=== PATIENT | male | born 1960 | race American Indian/Alaskan Native ===

== ENCOUNTER 2021-10-05 19:40 | Emergency (ER) | payer OTHER ==
[2021-10-05] MEDS ORDERED: HYDROmorphone 1 MG/ML Syringe IM ONE (20:31)
== END 2021-10-05 21:00 | disposition home or self-care (01) ==
LOC: JD.ED 19:40
DX: G89.29 Other chronic pain (principal); M54.2 Cervicalgia; E11.9 Type 2 diabetes mellitus without complications; F17.210 Nicotine dependence, cigarettes, uncomplicated; Z88.8 Allergy status to other drugs, medicaments and biological substances; Z88.5 Allergy status to narcotic agent
CPT/HCPCS: 96372; 99283; J1170

== ENCOUNTER 2022-04-29 09:58 | Day surgery (SDC) | payer OTHER ==
[~2022-04-29 09:58] MED LIST: Lactated Ringers 1,000 ML IV SCH; Lidocaine 1%/Sod Bicarbonate in NS 8.4% 1 ML Syringe IDERM PRN; Sodium Chloride 0.9% 10 ML Syringe FLUSH PRN; Sodium Chloride 0.9% 10 ML Syringe FLUSH SCH
[2022-04-29] MEDS ORDERED: Ondansetron 4 MG/2 ML SDV IVPUSH PRN (10:20)
[2022-04-29] MEDS ORDERED: fentaNYL 100 MCG/2 ML SDV IVPUSH PRN (10:20)
[2022-04-29] MEDS ORDERED: HYDROmorphone 0.5 MG/0.5 ML Syringe IVPUSH PRN (10:20)
[2022-04-29] MEDS ORDERED: Lidocaine 1% 2 ML ONE (10:30)
[2022-04-29] MEDS ORDERED: Propofol 200 MG/20 ML SDV ONE ×2 (10:30→11:10)
[2022-04-29] MEDS ORDERED: fentaNYL 100 MCG/2 ML SDV ONE (10:31)
[2022-04-29] MEDS ORDERED: Midazolam 1 MG/ML 2 ML SDV ONE (10:31)
[2022-04-29] MEDS ORDERED: Phenylephrine HCl In 0.9% NaCl 1 MG/10 ML Vial ONE (10:58)
[2022-04-29] MEDS ORDERED: ePHEDrine 50 MG/ML SDV ONE (11:45)
== END 2022-04-29 12:53 | disposition home or self-care (01) ==
LOC: JD.SDS 09:58
PROVIDERS: ATTEND Surgery
DX: D12.2 Benign neoplasm of ascending colon (principal); D12.4 Benign neoplasm of descending colon; D12.5 Benign neoplasm of sigmoid colon; D12.3 Benign neoplasm of transverse colon; K31.89 Other diseases of stomach and duodenum; K21.9 Gastro-esophageal reflux disease without esophagitis; K64.8 Other hemorrhoids; K62.1 Rectal polyp; E11.9 Type 2 diabetes mellitus without complications; I10 Essential (primary) hypertension; F32.9 Major depressive disorder, single episode, unspecified; E78.5 Hyperlipidemia, unspecified; E55.9 Vitamin D deficiency, unspecified; M10.9 Gout, unspecified; M19.90 Unspecified osteoarthritis, unspecified site; G47.00 Insomnia, unspecified; F17.210 Nicotine dependence, cigarettes, uncomplicated; Z98.890 Other specified postprocedural states; Z79.899 Other long term (current) drug therapy; Z79.4 Long term (current) use of insulin; Z88.6 Allergy status to analgesic agent; Z98.1 Arthrodesis status
CPT/HCPCS: 43239; 45380; 45381; 45385; 82947; J2250; J2704; J3010; J7120; 00813; J3490

== ENCOUNTER 2023-07-20 16:19 | Inpatient (IN) | payer OTHER ==
[2023-07-20 17:53] LABS: BASOPHILS PERCENT AUTO 0.3 % (0.0-1.0); EOSINOPHILS ABSOLUTE AUTO 0.2 K/mm3 (0.0-0.4); EOSINOPHILS PERCENT AUTO 2.7 % (0.0-6.0); HEMATOCRIT 41.3 % (42.0-52.0); HEMOGLOBIN 13.9 gm/dl (14.0-18.0); IMMATURE GRAN ABSOLUTE AUTO 0.02 K/mm3 (0.00-0.05); IMMATURE GRAN PERCENT AUTO 0.3 % (0.0-0.4); LYMPHOCYTES ABSOLUTE AUTO 1.9 K/mm3 (1.0-4.8); LYMPHOCYTES PERCENT AUTO 25.8 % (24.0-44.0); MEAN CORPUSCULAR HEMOGLOBIN 30.3 pg (28.0-32.0); MEAN CORPUSCULAR HGB CONC 33.7 g/dl (32.0-36.0); MONOCYTES ABSOLUTE AUTO 0.4 K/mm3 (0.0-0.8); MONOCYTES PERCENT AUTO 5.9 % (0.0-8.0); NEUTROPHILS ABSOLUTE AUTO 4.7 K/mm3 (1.8-7.7); PLATELET COUNT,PLT 194 K/mm3 (150-400); RED BLOOD CELL COUNT 4.59 M/mm3 (4.52-5.90); WHITE BLOOD CELL COUNT,WBC 7.28 K/mm3 (3.9-11.3)
[2023-07-20 18:04] LABS: A/G RATIO 1.2 (1-2); ALBUMIN 3.8 g/dl (3.4-5.0); ANION GAP 12.9 (5-15); BILIRUBIN TOTAL 0.6 mg/dL (0.2-1.0); BUN/CREATININE RATIO 11.1 (14-18); CALCIUM 10.5 mg/dL (8.5-10.1); CREATININE 1.8 mg/dL (0.7-1.3); EST CRCL DRUG DOSING (CG) 49.47 mL/min; POTASSIUM,K 3.9 mEq/L (3.5-5.1); PROTEIN TOTAL,TP 7.1 g/dl (6.4-8.2)
[2023-07-20 18:10] LABS: INR 1.06; PROTHROMBIN TIME 11.3 SECONDS (9.7-12.0)
[2023-07-20] MEDS: Ondansetron 4 MG/2 ML SDV IVPUSH ONE (18:53)
[2023-07-20] MEDS: Morphine 4 MG/ML Syringe IVPUSH ONE (18:53)
[2023-07-20] MEDS ORDERED: Sodium Chloride 0.9% 100 ML IV SCH (20:00)
[2023-07-20] MEDS: Iopamidol 755 Mg/ML 100 ML Bottle IVPUSH ONE (20:00)
[2023-07-20 20:01] LABS: APPEARANCE,URINE CLEAR (Clear); BILIRUBIN,URINE NEGATIVE (Negative); COLOR,URINE YELLOW (Yellow); GLUCOSE,URINE NEGATIVE (Negative); KETONES,URINE NEGATIVE (Negative); LEUKOCYTE ESTERASE,URINE NEGATIVE (Negative); NITRITE,URINE NEGATIVE (Negative); OCCULT BLOOD,URINE NEGATIVE (Negative); PROTEIN,URINE NEGATIVE (Negative)
[2023-07-20] MEDS: Heparin Sodium/D5W 25,000 UNITS/500 ML BAG IV SCH (22:33)
[2023-07-21] MEDS: Acetaminophen 325 MG Tab PO PRN (00:01)
[2023-07-21] MEDS ORDERED: Ondansetron 4 MG/2 ML SDV IV PRN (06:33)
[2023-07-21] MEDS: Insulin Lispro 100 Unit/ML 3 ML KwikPen SUBCUT SCH (07:36)
[2023-07-21] MEDS: oxyCODONE 5 MG Tab PO PRN (07:53)
[2023-07-21] MEDS: Pantoprazole 40 MG Tab.CR PO SCH (07:54)
[2023-07-21] MEDS ORDERED: Pantoprazole 40 MG Tab.CR PO SCH (09:00)
[2023-07-21] MEDS: Tamsulosin 0.4 MG Cap.ER PO SCH (12:01)
[2023-07-21] MEDS: Famotidine 20 MG Tab PO SCH (12:01)
[2023-07-21] MEDS: Cyclobenzaprine 10 MG Tab PO SCH (14:14)
[2023-07-21] MEDS: Insulin Glargine,Human Rec. Analog 100 Units/ML 3 ML Pen SUBCUT SCH (20:53)
[2023-07-21] MEDS: Heparin Sodium 5,000 Units/ML Vial IV ONE (22:45)
[2023-07-22 03:32] LABS: HEMATOCRIT 40.9 % (42.0-52.0); HEMOGLOBIN 13.9 gm/dl (14.0-18.0); MEAN CORPUSCULAR HEMOGLOBIN 30.4 pg (28.0-32.0); MEAN CORPUSCULAR VOLUME 89.5 fl (83.0-99.0); MEAN PLATELET VOLUME 9.5 fl (9.4-12.4); PLATELET COUNT,PLT 195 K/mm3 (150-400); RED BLOOD CELL COUNT 4.57 M/mm3 (4.52-5.90); WHITE BLOOD CELL COUNT,WBC 5.49 K/mm3 (3.9-11.3)
[2023-07-22 04:02] LABS: A/G RATIO 0.9 (1-2); ALBUMIN 3.2 g/dl (3.4-5.0); BILIRUBIN TOTAL 0.3 mg/dL (0.2-1.0); BUN/CREATININE RATIO 16.3 (14-18); CALCIUM 9.7 mg/dL (8.5-10.1); CREATININE 1.6 mg/dL (0.7-1.3); EST CRCL DRUG DOSING (CG) 55.66 mL/min; PROTEIN TOTAL,TP 6.6 g/dl (6.4-8.2)
[2023-07-22 04:18] LABS: INR 0.99; PROTHROMBIN TIME 10.6 SECONDS (9.7-12.0)
[2023-07-22] MEDS: Heparin Sodium 5,000 Units/ML Vial IV ONE ×2 (04:59→20:17)
[2023-07-22] MEDS: buPROPion 150 MG Tab.ER PO SCH (07:59)
[2023-07-22] MEDS: CARISOPRODOL 250 MG PO SCH (10:06)
[2023-07-22] MEDS: Warfarin 5 MG Tab PO SCH (17:57)
[2023-07-22] MEDS: Tamsulosin 0.4 MG Cap.ER PO SCH (20:19)
[2023-07-23 02:39] LABS: HEMATOCRIT 41.6 % (42.0-52.0); HEMOGLOBIN 13.9 gm/dl (14.0-18.0); MEAN CORPUSCULAR HEMOGLOBIN 29.6 pg (28.0-32.0); MEAN CORPUSCULAR HGB CONC 33.4 g/dl (32.0-36.0); MEAN CORPUSCULAR VOLUME 88.7 fl (83.0-99.0); MEAN PLATELET VOLUME 9.3 fl (9.4-12.4); PLATELET COUNT,PLT 187 K/mm3 (150-400); RED BLOOD CELL COUNT 4.69 M/mm3 (4.52-5.90)
[2023-07-23 02:59] LABS: ALBUMIN 3.3 g/dl (3.4-5.0); ANION GAP 10.9 (5-15); BILIRUBIN TOTAL 0.4 mg/dL (0.2-1.0); BUN/CREATININE RATIO 16.5 (14-18); CALCIUM 9.6 mg/dL (8.5-10.1); CREATININE 1.7 mg/dL (0.7-1.3); EST CRCL DRUG DOSING (CG) 52.38 mL/min; INR 1.02; POTASSIUM,K 3.9 mEq/L (3.5-5.1); PROTEIN TOTAL,TP 6.7 g/dl (6.4-8.2); PROTHROMBIN TIME 10.9 SECONDS (9.7-12.0)
[2023-07-23] MEDS: Insulin Glargine,Human Rec. Analog 100 Units/ML 3 ML Pen SUBCUT SCH (11:54)
[2023-07-23] MEDS: Warfarin 3 MG Tab PO SCH (17:44)
[2023-07-24 05:43] LABS: HEMOGLOBIN 14.3 gm/dl (14.0-18.0); MEAN CORPUSCULAR HEMOGLOBIN 30.2 pg (28.0-32.0); MEAN CORPUSCULAR VOLUME 88.6 fl (83.0-99.0); MEAN PLATELET VOLUME 9.9 fl (9.4-12.4); PLATELET COUNT,PLT 206 K/mm3 (150-400); RED BLOOD CELL COUNT 4.74 M/mm3 (4.52-5.90); WHITE BLOOD CELL COUNT,WBC 6.86 K/mm3 (3.9-11.3)
[2023-07-24 05:56] LABS: ALBUMIN 3.4 g/dl (3.4-5.0); ANION GAP 15.1 (5-15); BILIRUBIN TOTAL 0.3 mg/dL (0.2-1.0); BUN/CREATININE RATIO 15.3 (14-18); CALCIUM 10.1 mg/dL (8.5-10.1); CREATININE 1.9 mg/dL (0.7-1.3); EST CRCL DRUG DOSING (CG) 46.87 mL/min; INR 1.06; POTASSIUM,K 4.1 mEq/L (3.5-5.1); PROTEIN TOTAL,TP 6.9 g/dl (6.4-8.2); PROTHROMBIN TIME 11.3 SECONDS (9.7-12.0)
[2023-07-24 06:23] LABS: PTT,PARTIAL THROMBOPLSTIN TIME 70.6 SECONDS (21.7-31.4)
[2023-07-24] MEDS: Warfarin 3 MG Tab PO SCH (17:06)
[2023-07-25 05:52] LABS: HEMATOCRIT 38.7 % (42.0-52.0); HEMOGLOBIN 13.5 gm/dl (14.0-18.0); MEAN CORPUSCULAR HGB CONC 34.9 g/dl (32.0-36.0); MEAN PLATELET VOLUME 9.8 fl (9.4-12.4); PLATELET COUNT,PLT 190 K/mm3 (150-400); RED BLOOD CELL COUNT 4.35 M/mm3 (4.52-5.90); WHITE BLOOD CELL COUNT,WBC 6.31 K/mm3 (3.9-11.3)
[2023-07-25 06:12] LABS: INR 1.36; PROTHROMBIN TIME 14.2 SECONDS (9.7-12.0)
[2023-07-25 06:27] LABS: A/G RATIO 0.9 (1-2); ALBUMIN 3.1 g/dl (3.4-5.0); ANION GAP 13.2 (5-15); BILIRUBIN TOTAL 0.2 mg/dL (0.2-1.0); BUN/CREATININE RATIO 17.4 (14-18); CALCIUM 9.7 mg/dL (8.5-10.1); CREATININE 1.9 mg/dL (0.7-1.3); EST CRCL DRUG DOSING (CG) 46.87 mL/min; POTASSIUM,K 4.2 mEq/L (3.5-5.1); PROTEIN TOTAL,TP 6.5 g/dl (6.4-8.2)
[2023-07-25] MEDS ORDERED: Pantoprazole 40 MG Tab.CR PO SCH (09:30)
[2023-07-25] MEDS: Warfarin 3 MG Tab PO SCH (17:04)
[2023-07-25] MEDS ORDERED: HYDROmorphone 1 MG/ML Syringe IVPUSH PRN (19:57)
[2023-07-25] MEDS: HYDROmorphone 0.5 MG/0.5 ML Syringe IVPUSH PRN (21:09)
[2023-07-26 06:12] LABS: INR 1.49; PROTHROMBIN TIME 15.5 SECONDS (9.7-12.0)
[2023-07-26 06:18] LABS: ALBUMIN 3.2 g/dl (3.4-5.0); ANION GAP 12.1 (5-15); BILIRUBIN TOTAL 0.2 mg/dL (0.2-1.0); CREATININE 1.7 mg/dL (0.7-1.3); EST CRCL DRUG DOSING (CG) 52.38 mL/min; POTASSIUM,K 4.1 mEq/L (3.5-5.1); PROTEIN TOTAL,TP 6.5 g/dl (6.4-8.2)
[2023-07-26] MEDS: Fenofibrate Nanocrystallized 145 MG Tab PO SCH (07:45)
[2023-07-26] MEDS ORDERED: buPROPion 150 MG Tab.ER PO SCH (09:00)
[2023-07-26] MEDS: HYDROmorphone 1 MG/ML Syringe IVPUSH PRN (12:54)
[2023-07-26] MEDS: Warfarin 3 MG Tab PO SCH (16:43)
[2023-07-27 05:44] LABS: ANION GAP 14.1 (5-15); BUN/CREATININE RATIO 16.8 (14-18); CALCIUM 10.4 mg/dL (8.5-10.1); CREATININE 1.9 mg/dL (0.7-1.3); EST CRCL DRUG DOSING (CG) 46.87 mL/min
[2023-07-27 05:45] LABS: HEMATOCRIT 40.5 % (42.0-52.0); HEMOGLOBIN 13.7 gm/dl (14.0-18.0); MEAN CORPUSCULAR HEMOGLOBIN 30.4 pg (28.0-32.0); MEAN CORPUSCULAR HGB CONC 33.8 g/dl (32.0-36.0); MEAN CORPUSCULAR VOLUME 89.8 fl (83.0-99.0); MEAN PLATELET VOLUME 10.2 fl (9.4-12.4); PLATELET COUNT,PLT 212 K/mm3 (150-400); RED BLOOD CELL COUNT 4.51 M/mm3 (4.52-5.90); WHITE BLOOD CELL COUNT,WBC 6.36 K/mm3 (3.9-11.3)
[2023-07-27 05:48] LABS: POTASSIUM,K 4.1 mEq/L (3.5-5.1)
[2023-07-27 06:19] LABS: INR 1.76; PROTHROMBIN TIME 18.1 SECONDS (9.7-12.0)
[2023-07-27] MEDS: Warfarin 7.5 MG Tab PO SCH (17:30)
[2023-07-28 06:17] LABS: INR 2.06; PROTHROMBIN TIME 20.9 SECONDS (9.7-12.0)
[2023-07-28] MEDS: Insulin Glargine,Human Rec. Analog 100 Units/ML 3 ML Pen SUBCUT SCH (09:58)
[2023-07-28] MEDS ORDERED: Warfarin 7.5 MG Tab PO SCH (18:00)
== END 2023-07-28 12:45 | disposition home or self-care (01) | DRG 301 ==
LOC: JD.ED 16:19 → JD.MS 22:16
PROVIDERS: ADMIT Internal Medicine; ATTEND Internal Medicine
DX: I82.401 Acute embolism and thrombosis of unspecified deep veins of right lower extremity (principal); I12.9 Hypertensive chronic kidney disease with stage 1 through stage 4 chronic kidney disease, or unspecified chronic kidney disease; N18.32 Chronic kidney disease, stage 3b; N40.0 Benign prostatic hyperplasia without lower urinary tract symptoms; F41.9 Anxiety disorder, unspecified; E11.22 Type 2 diabetes mellitus with diabetic chronic kidney disease; M54.2 Cervicalgia; G89.29 Other chronic pain; F32.A Depression, unspecified; F17.210 Nicotine dependence, cigarettes, uncomplicated; K21.9 Gastro-esophageal reflux disease without esophagitis; Z96.659 Presence of unspecified artificial knee joint; Z79.4 Long term (current) use of insulin; Z86.718 Personal history of other venous thrombosis and embolism; Z79.01 Long term (current) use of anticoagulants; Z88.5 Allergy status to narcotic agent; Z90.49 Acquired absence of other specified parts of digestive tract; Z98.1 Arthrodesis status
CPT/HCPCS: 36415; 71045; 71045-26; 71275; 71275-26; 80048; 80053; 81003; 82947; 85025; 85027; 85610; 85730; 93005; 93010; 93971-26-RT; 93971-RT; 99232; 99239; 99285; A9270-GY; J1170; J1644; J1815; J1815-GY; J2270; J2405; Q9967

== ENCOUNTER 2024-10-22 17:11 | Emergency (ER) | payer OTHER ==
[2024-10-22 18:07] LABS: BASOPHILS ABSOLUTE AUTO 0.0 K/mm3 (0.0-0.2); BASOPHILS PERCENT AUTO 0.3 % (0.0-1.0); EOSINOPHILS ABSOLUTE AUTO 0.1 K/mm3 (0.0-0.4); EOSINOPHILS PERCENT AUTO 0.9 % (0.0-6.0); IMMATURE GRAN ABSOLUTE AUTO 0.02 K/mm3 (0.00-0.05); IMMATURE GRAN PERCENT AUTO 0.2 % (0.0-0.4); LYMPHOCYTES ABSOLUTE AUTO 2.0 K/mm3 (1.0-4.8); LYMPHOCYTES PERCENT AUTO 23.2 % (24.0-44.0); MEAN PLATELET VOLUME 11.5 fl (9.4-12.4); MONOCYTES ABSOLUTE AUTO 0.9 K/mm3 (0.0-0.8); MONOCYTES PERCENT AUTO 9.8 % (0.0-8.0); NEUTROPHILS ABSOLUTE AUTO 5.7 K/mm3 (1.8-7.7); NEUTROPHILS PERCENT AUTO 65.6 % (41.0-71.0); NRBC ABSOLUTE 0.00 (0.00-0.02); NRBC PERCENT 0.0 % (0.0-0.2); PLATELET COUNT,PLT 132 K/mm3 (150-400); RED BLOOD CELL COUNT 5.62 M/mm3 (4.52-5.90); WHITE BLOOD CELL COUNT,WBC 8.66 K/mm3 (3.9-11.3)
[2024-10-22 18:11] LABS: BICARBONATE,ARTERIAL 19.5 meq/L (22.0-26.0); O2 SATURATION ARTERIAL 85.7 % (96.0-97.0); PCO2 ARTERIAL 28.0 mmHg (35.0-45.0); PO2 ARTERIAL 54.0 mmHg (80.0-100.0)
[2024-10-22 18:12] LABS: BASE EXCESS ARTERIAL -2.8 (-2-2.0)
[2024-10-22 18:28] LABS: INR 1.87
[2024-10-22 18:42] LABS: A/G RATIO 1.0 (1-2); ALANINE AMINOTRANSFERASE,ALT 191.0 U/L (16-63); ASPARTATE AMNIOTRANSFERASE,AST 416.0 U/L (15-37); BILIRUBIN TOTAL 2.7 mg/dL (0.2-1.0); BLOOD UREA NITROGEN,BUN 35.0 mg/dL (7-18); CARBON DIOXIDE,CO2 20.0 mEq/L (21-32); CHLORIDE,CL 102.0 mEq/L (98-107); CREATINE KINASE,CK 183.0 U/L (39-308); CREATININE 1.9 mg/dL (0.7-1.3); EST CRCL DRUG DOSING (CG) 46.27 mL/min; ESTIMATED GFR 39.0 mL/min (>60); GLUCOSE RANDOM 170.0 mg/dL (70-99); POTASSIUM,K 4.5 mEq/L (3.5-5.1); PROTEIN TOTAL,TP 6.3 g/dl (6.4-8.2); SODIUM,NA 134.0 mEq/L (136-145); TROPONIN I HIGH SENSITIVITY 34.0 pg/mL (<=76)
[2024-10-22 18:43] LABS: ETHANOL BLOOD MEDICAL 0.0 gm% (0.00)
[2024-10-22] MEDS: Iopamidol 755 Mg/ML 100 ML Bottle IVPUSH ONE (20:08)
[2024-10-22] MEDS: Sodium Chloride 0.9% 10 ML Syringe FLUSH PRN (20:08)
[2024-10-22 20:37] LABS: APPEARANCE,URINE CLEAR (Clear); GLUCOSE,URINE NEGATIVE (Negative); OCCULT BLOOD,URINE NEGATIVE (Negative)
[2024-10-22 20:45] LABS: BUPRENORPHINE SCREEN,URINE NEGATIVE (CUTOFF=10); METHADONE SCREEN, URINE NEGATIVE (CUT0FF=200); METHAMPHETAMINES SCREEN, URINE NEGATIVE (CUTOFF=500); OXYCODONE SCREEN,URINE NEGATIVE (CUT0FF=100); THC SCREEN,URINE 20 NG/ML PRESUMPTIVE POSITIVE (CUTOFF=50)
[2024-10-22 20:47] LABS: AMPHETAMINES SCREEN, URINE NEGATIVE (CUTOFF=500)
[2024-10-22 20:50] LABS: EPITHELIAL CELLS,URINE 0-5 /hpf (0-5); FINE GRANULAR CASTS,URINE 0-5 /lpf (0-5)
[2024-10-22] MEDS: Furosemide 40 MG/4 ML VIAL IVPUSH ONE (21:21)
[2024-10-22] MEDS: fentaNYL 100 MCG/2 ML SDV IVPUSH ONE (22:19)
== END 2024-10-22 22:50 ==
LOC: JD.ED 17:11
DX: I50.9 Heart failure, unspecified (principal); J90 Pleural effusion, not elsewhere classified; R79.89 Other specified abnormal findings of blood chemistry; E11.9 Type 2 diabetes mellitus without complications; M19.90 Unspecified osteoarthritis, unspecified site; Z86.16 Personal history of COVID-19; Z90.49 Acquired absence of other specified parts of digestive tract; Z79.899 Other long term (current) drug therapy; Z79.4 Long term (current) use of insulin; Z79.01 Long term (current) use of anticoagulants
CPT/HCPCS: 36415; 36600; 71275; 74177; 76705; 80053; 80306; 80307; 81001; 82550; 82803; 83605; 83690; 83735; 83880; 84484; 85025; 85610; 85652; 86140; 87040; 96365; 96375; 99285; J1938; J2543; J3010; Q9967